=== PATIENT | female | born 1950 | race Caucasian/White ===

== ENCOUNTER 2018-05-19 08:21 | Day surgery (SDC) | payer MEDICARE, OTHER ==
[~2018-05-19 08:21] MED LIST: PROPOFOL 500 MG/50 ML EMU IV ONE
[2018-05-19 10:17] VITALS: BP 130/71; PULSE 68; RESP 20; TEMP 97.7; O2SAT 100
== END 2018-05-19 10:35 | disposition home or self-care (01) | DRG 951 ==
LOC: SURG 08:21
PROVIDERS: ATTEND Surgery
DX: Z12.11 Encounter for screening for malignant neoplasm of colon (principal); R10.32 Left lower quadrant pain
CPT/HCPCS: J2704